=== PATIENT | female | born 1995 | race Caucasian/White ===

== ENCOUNTER 2019-05-14 20:49 | Emergency (ER) | payer OTHER ==
[~2019-05-14] VITALS: Ht 152.4 cm; Wt 68.8 kg
[2019-05-14 21:01] VITALS: Ht 152.4 cm; Wt 68.8 kg
[2019-05-14] MEDS ORDERED: ONDANSETRON (ODT) 4 MG TAB ODT STA (22:19)
[2019-05-14] MEDS ORDERED: ACETAMINOPHEN 500 MG TAB PO STA (22:19)
--- NOTE | 2019-05-15 01:00 | ERD ---
ER Documentation Chief Complaint Chief Complaint lower abd pain x 1 hour, states 7 weeks , denies vb HPI 24yo 7-weeks F presents with complaint of pelvic pain x 1 hr, vaginal bleeding x 1 day, and nausea x 2 days. Pt denies clots or heavy bleeding, states bleeding noticed when wiping. Rates pelvic pain as an 8/10 constant pain for which she has not taken any medication at this time. She denies fevers, vomiting, diarrhea, SOB, or dizziness. ROS All systems reviewed and are negative except as per history of present illness. CONSTITUTIONAL: Denies fever, Denies chills, Denies general weakness. RESPIRATORY: Denies SOB, Denies cough. CARDIOVASCULAR: Denies chest pain, Denies palpitations GI: Admits to nausea. Denies vomiting, Denies diarrhea. Admits to pelvic pain : Denies dysuria, Denies urgency, Denies hematuria PSYCHIATRIC: Denies change mental status, Denies confusion Allergies Allergies: Coded Allergies: ampicillin (Verified Allergy, Unknown, 05/14/19) PMhx/Soc History of Surgery: Yes ( X2, GALLBLADDER REMOVAL ) Hx Alcohol Use: No Hx Substance Use: No Hx Tobacco Use: No Smoking Status: Never smoker FmHx Family History: No diabetes, No coronary disease, No other Physical Exam Vitals Vital Signs Date Temp Pulse Resp B/P (MAP) Pulse Ox O2 O2 Flow FiO2 Time Delivery Rate 05/15/19 98.1 58 18 109/65 98 Room Air 01:16 (80) 05/14/19 98.4 84 20 122/72 100 21:01 (89) Physical Exam GEN: Alert and coherent. Well appearing, non-toxic. No acute distress. HEAD: Normocephalic, atraumatic. NECK: Supple. Full range of motion. Trachea midline. No lymphadenopathy. RESP: No tachypnea. Clear to auscultation bilaterally. No wheezing, rales or rhonchi. No accessory muscle use. CV: Regular rate and rhythm. No murmurs, rubs, or gallops. ABD: Soft, non-distended. Negative Encinsa sign. Positive RLQ tenderness. Positive suprapubic tenderness. No rebound tenderness or rigidity. Negative mcburneys point tenderness. No masses. Positive bowel sounds in all four quadrants. BACK: Full ROM. No CVA tenderness. EXTR: No deformity. No clubbing, cyanosis or edema. Equal pulses x 4. SKIN: Warm and dry. No obvious rashes, erythema, or petechiae. NEURO: Alert and oriented x3. Appropriate speech, mood and affect. Face is symmetric. Speech is normal. CN II-XII intact. Moves all extremities equally. Ambulates with a strong, steady gait. Result Diagram: 05/14/19223005/14/192230 Results 24 hrs Laboratory Tests Test 05/14/19 22:19 05/14/19 22:31 Urine Color LARISSA Urine Clarity CLOUDY Urine pH 6.0 Urine Specific [place] 1.027 Urine Ketones 2+ mg/dL Urine Nitrite NEGATIVE mg/dL Urine Bilirubin NEGATIVE mg/dL Urine Urobilinogen 2+ mg/dL Urine Leukocyte Esterase NEGATIVE Silvano/ul Urine Microscopic RBC 7 /HPF Urine Microscopic WBC 2 /HPF Urine Squamous Epithelial Cells FEW /HPF Urine Bacteria FEW /HPF Urine Mucus FEW /HPF Urine Hemoglobin 1+ mg/dL Urine Glucose NEGATIVE mg/dL Urine Total Protein 1+ mg/dl Urine Test POSITIVE White Blood Count 14.1 10^3/ul Red Blood Count 4.57 10^6/ul Hemoglobin 14.0 g/dl Hematocrit 40.1 % Mean Corpuscular Volume 87.7 fl Mean Corpuscular Hemoglobin 30.6 pg Mean Corpuscular Hemoglobin Concent 34.9 g/dl Red Cell Distribution Width 12.7 % Platelet Count 357 10^3/UL Mean Platelet Volume 9.9 fl Immature Granulocytes % 0.400 % Neutrophils % 67.5 % Lymphocytes % 26.8 % Monocytes % 4.6 % Eosinophils % 0.3 % Basophils % 0.4 % Nucleated Red Blood Cells % 0.0 /100WBC Immature Granulocytes # 0.050 10^3/ul Neutrophils # 9.5 10^3/ul Lymphocytes # 3.8 10^3/ul Monocytes # 0.7 10^3/ul Eosinophils # 0.0 10^3/ul Basophils # 0.1 10^3/ul Nucleated Red Blood Cells # 0.0 10^3/ul Prothrombin Time 13.9 Sec Prothrombin Time Ratio 1.1 INR International Normalized Ratio 1.06 Activated Partial Thromboplast Time 33.1 Sec Sodium Level 139 mmol/L Potassium Level 3.9 mmol/L Chloride Level 106 mmol/L Carbon Dioxide Level 20 mmol/L Anion Gap 13 Blood Urea Nitrogen 5 mg/dl Creatinine 0.56 mg/dl Est Glomerular Filtrat Rate mL/min > 60 mL/min Glucose Level 100 mg/dl Calcium Level 9.3 mg/dl Total Bilirubin 0.6 mg/dl Direct Bilirubin 0.00 mg/dl Indirect Bilirubin 0.6 mg/dl Aspartate Amino Transf (AST/SGOT) 45 IU/L Alanine Aminotransferase (ALT/SGPT) 77 IU/L Alkaline Phosphatase 122 IU/L Total Protein 8.3 g/dl Albumin 4.6 g/dl Globulin 3.70 g/dl Albumin/Globulin Ratio 1.24 Beta HCG, Quantitative 42344.0 mIU/ml Current Medications Medications Dose Sig/Silvestre Start Time Status Last (Trade) Ordered Route PRN Stop Time Admin Dose Reason Admin Ondansetron 4 mg ONCE STAT 05/14/19 DC 05/14/19 HCl (Zofran ODT 22:19 22:28 Odt) 05/14/19 22:24 1,000 mg ONCE STAT 05/14/19 DC 05/14/19 Acetaminophen PO 22:19 22:28 (Tylenol 05/14/19 22:24 Tab) Procedures/MDM PROCEDURE: US Abdomen (right lower quadrant). FINDINGS: The appendix is not seen. IMPRESSION: 1. Appendix is not seen. 2. If there is persistent clinical concern regarding appendicitis, further evaluation with CT scan should be considered. PROCEDURE: US OB. FINDINGS: Uterus: No evidence of masses and normal in size Endometrial cavity: Intrauterine gestational sac, yolk sac and pole are p resent with the following information: [place]-rump length: 1.37 cm heart rate: 176 bpm Gestational sac: 2.30 cm Ultrasound estimated gestational age: 7 weeks 3 days Small hypoechoic subchorionic hemorrhage measures 0.7 x 0.4 cm. Right ovary/adnexa: Ovarian size is normal estimated at 2.6 x 1.9 x 140 cm. No ovarian or adnexal mass lesion is seen. Left ovary/adnexa: Ovarian size normal estimated at 3 x 1.9 x 2 cm. A corpus luteum cyst of the left ovary measures 1.4 cm. No adnexal mass lesion is seen. Cul-de-sac: There is no free fluid. IMPRESSION: 1. Single live intrauterine with an estimated gestational age of 7 weeks 3 days, the estimated date of delivery 12/28/2019. 2. Small subchorionic hemorrhage estimated at 0.7 x 0.4 cm. MDM: This is a 24year old 7weeks female presenting for complaint of vaginal bleeding, pelvic pain, and nausea. Patient is well-appearing, in no distress, non-toxic. In ED patient is hemodynamically stable. Pt with TTP RLQ and denies appendectomy. US Appendix did not visualize and appendix, US OB showed live IUP with gestational age of approx 7 weeks, and small subchorionic h emorrhage. Laboratory studies were reviewed, stable, Rh O pos. Pt was given Tylenol and Zofran PO for pain and nausea while in ED, with improvement in symptoms upon reassessment. At this time I can't fully exclude appendicitis d/t RLQ Pain, nausea, and inconclusive US however, my suspicions remain low. Regardless, I have counseled this patient regarding strict ED return precautions and to return in 8hrs if symptoms persist or worsen. Counseled patient she will need to have close follow-up with OB. Threatened miscarriage precautions were given to the pt and pelvic rest discussed. Patient remains in no distress, well- appearing, asymptomatic and will be discharged. Pt expressed verbal understa nding and agreement to treatment plan. All questions addressed and answered. Departure Diagnosis: Primary Impression: Subchorionic hemorrhage Fetus number: single or unspecified fetus Trimester: first trimester Qualified Codes: O41.8X10 - Other specified disorders of amniotic fluid and membranes, first trimester, not applicable or unspecified; O46.8X1 - Other antepartum hemorrhage, first trimester Additional Impressions: Vaginal bleeding Abdominal pain Abdominal location: right lower quadrant Qualified Codes: R10.31 - Right lower quadrant pain Condition: Stable SANDOVAL AMES PA-C May 15, 2019 01:00
[2019-05-15 01:16] VITALS: BP 109/65; PULSE 58; RESP 18
== END 2019-05-15 01:17 | disposition home or self-care (01) ==
LOC: FTE 20:49
DX: O41.8X10 Other specified disorders of amniotic fluid and membranes, first trimester, not applicable or unspecified (principal); O46.8X1 Other antepartum hemorrhage, first trimester; R10.31 Right lower quadrant pain; R10.2 Pelvic and perineal pain; Z3A.01 Less than 8 weeks gestation of pregnancy
CPT/HCPCS: 36415; 76705; 76801; 80053; 81001; 84702; 84703; 85025; 85610; 85730; 86900; 86901; Z7502; Z7610

== ENCOUNTER 2019-05-17 20:15 | Emergency (ER) | payer OTHER ==
[~2019-05-17] VITALS: Ht 157.5 cm; Wt 63.6 kg
[2019-05-17 20:22] VITALS: Ht 157.5 cm; Wt 63.6 kg
[2019-05-17] MEDS ORDERED: ACETAMINOPHEN 325 MG TAB PO ONE (22:30)
[2019-05-17] MEDS ORDERED: LACTATED RINGER'S 1,000 ML IV ONE (22:30)
[2019-05-17] MEDS ORDERED: METOCLOPRAMIDE 10 MG INJ IV ONE (22:30)
[2019-05-17] MEDS ORDERED: PREN1TAB71 PO (22:38)
--- NOTE | 2019-05-18 00:24 | ERD ---
ER Documentation Chief Complaint Chief Complaint WEAKNESS, VOMITING, AP, SOB X 3 DAYS HPI 24-year-old female , LMP 03/13/2019 seen in the ED 2 days ago and ultrasound revealed a 7-week intrauterine with a small subchorionic bleed presents to the ED complaining of mild, sharp and crampy, nonradiating suprapubic abdominal pain with nausea and several episodes of nonbloody nonbilious emesis. In contrast to the triage note denies chest pain, palpitations or shortness of breath. No dysuria, polyuria, hematuria, flank pain, vaginal bleeding or discharge. No fevers or chills. ROS All systems reviewed and are negative except as per history of present illness. Medications Home Meds Active Scripts Metoclopramide* (Reglan*) 10 Mg Tablet, 10 MG PO Q6 PRN for NAUSEA AND/OR VOMITING, #15 TAB Prov:RACHAEL THOMPSON MD 05/18/19 Reported Medications Vit No.130/Iron/FA ( Tablet) 1 Each Tablet, 1 EACH PO DAILY, TAB 05/17/19 Allergies Allergies: Coded Allergies: ampicillin (Unverified Allergy, Unknown, 05/17/19) PMhx/Soc Medical and Surgical Hx: pt denies Medical Hx History of Surgery: Yes ( X2, GALLBLADDER REMOVAL ) Hx Neurological Disorder: No Hx Respiratory Disorders: No Hx Cardiac Disorders: No Hx Psychiatric Problems: Yes (anxiety) Hx Miscellaneous Medical Probl: No Hx Alcohol Use: No Hx Substance Use: No Hx Tobacco Use: No Smoking Status: Never smoker FmHx No family history relevant to presenting complaint Physical Exam Vitals Vital Signs Date Temp Pulse Resp B/P (MAP) Pulse Ox O2 O2 Flow FiO2 Time Delivery Rate 05/18/19 69 18 110/61 100 Room Air 00:47 (77) 05/18/19 65 15 104/74 100 Room Air 00:11 (84) 05/17/19 78 24 114/94 99 Room Air 21:29 (101) 05/17/19 97.6 62 32 146/84 100 20:22 (104) Physical Exam Const: Anxious, crying, moderate distress. Head: Atraumatic Eyes: Normal Conjunctiva ENT: Normal External Ears, Nose and Mouth. Neck: Full range of motion. No meningismus. Resp: Clear to auscultation bilaterally Cardio: Regular rate and rhythm, no murmurs Abd: Soft, mild suprapubic tenderness but no right or left lower quadrant tenderness. No rebound or guarding. Normal bowel sounds. : Pelvic exam deferred as per patient. Skin: No petechiae or rashes Back: No midline or flank tenderness Ext: No cyanosis, or edema Neur: Awake and alert Psych: Anxious but not depressed. Results 24 hrs Current Medications Medications Dose Sig/Silvestre Start Time Status Last (Trade) Ordered Route PRN Stop Time Admin Dose Reason Admin 10 mg ONCE ONCE 05/17/19 DC 05/17/19 Metoclopramid IV 22:30 22:26 e HCl 05/17/19 22:31 (Reglan) Lactated 1,000 ml @ Q1H ONCE 05/17/19 DC 05/17/19 Ringer's 1,000 mls/hr IV 22:30 22:27 05/17/19 23:29 650 mg ONCE ONCE 05/17/19 DC 05/17/19 Acetaminophen PO 22:30 22:55 (Tylenol 05/17/19 22:31 Tab) Procedures/MDM DOCUMENTS REVIEWED: ED nurse, prior ED visit, labs and imaging studies from 05/14 REEXAMINATION/REEVALUATION: Time: 2350. Doing well. Asymptomatic. Abdomen soft nontender. Tolerating PO's and request discharge. MEDICAL DECISION MAKIN-year-old female , LMP 03/13/2019 seen in the ED 3 days ago and ultrasound revealed a 7-week intrauterine with a small subchorionic bleed presents to the ED complaining of mild, sharp and crampy, nonradiating suprapubic abdominal pain with nausea and several episodes of nonbloody nonbilious emesis. Labs and imaging studies from prior ED visit on 05/14 reviewed. Blood type is O+. Abdominal exam is completely benign without significant tenderness, rebound, guarding or signs of an occult process including but not limited to appendicitis. No vaginal bleeding. Ultrasound revealed a documented intrauterine and there is no findings of heterotopic . No symptoms of urinary tract infection or pyelonephritis and prior urinalysis is negative. Symptoms completely resolved with intravenous fluids, metoclopramide and acetaminophen. Stable for discharge with precautionary instructions and outpatient follow-up as counseled. Counseled patient and family regarding diagnostic workup, diagnosis and need for followup. Understands to return to ED if symptoms recur, worsen or any other concerns. Departure Diagnosis: Primary Impression: Abdominal pain during Trimester: first trimester Qualified Codes: O26.891 - Other specified related conditions, first trimester; R10.9 - Unspecified abdominal pain Additional Impressions: Nausea and vomiting Vomiting type: unspecified Vomiting Intractability: non-intractable Q ualified Codes: R11.2 - Nausea with vomiting, unspecified with 7 completed weeks gestation Subchorionic hemorrhage in first trimester Fetus number: single or unspecified fetus Qualified Codes: O41.8X10 - Other specified disorders of amniotic fluid and membranes, first trimester, not applicable or unspecified; O46.8X1 - Other antepartum hemorrhage, first trimester Condition: Stable (Improved) RACHAEL THOMPSON MD May 18, 2019 00:24
[2019-05-18] MEDS ORDERED: METO10TA92 PO (00:40)
[2019-05-18 00:47] VITALS: BP 110/61; PULSE 69; RESP 18
== END 2019-05-18 01:01 | disposition home or self-care (01) ==
LOC: E/R 20:15
DX: O26.891 Other specified pregnancy related conditions, first trimester (principal); R40.2142 Coma scale, eyes open, spontaneous, at arrival to emergency department; R40.2362 Coma scale, best motor response, obeys commands, at arrival to emergency department; R40.2252 Coma scale, best verbal response, oriented, at arrival to emergency department; R10.9 Unspecified abdominal pain; O41.8X10 Other specified disorders of amniotic fluid and membranes, first trimester, not applicable or unspecified; O46.8X1 Other antepartum hemorrhage, first trimester; Z3A.01 Less than 8 weeks gestation of pregnancy
CPT/HCPCS: 96374; J2765; J7120; Z7502; Z7610

== ENCOUNTER 2019-05-20 10:36 | Emergency (ER) | payer OTHER ==
[~2019-05-20] VITALS: Ht 157.5 cm; Wt 78.0 kg
[~2019-05-20 10:36] MED LIST: METO10TA92 PO; PREN1TAB71 PO
[2019-05-20 10:48] VITALS: Ht 157.5 cm; Wt 78.0 kg
[2019-05-20] MEDS ORDERED: SOD CHLORIDE 0.9% 1,000 ML IV STA (11:35)
[2019-05-20] MEDS ORDERED: ACETAMINOPHEN 325 MG TAB PO ONE (12:00)
[2019-05-20] MEDS ORDERED: METOCLOPRAMIDE 10 MG INJ IV ONE (12:00)
[2019-05-20] MEDS ORDERED: FAMOTIDINE 20 MG INJ IV ONE (12:00)
--- NOTE | 2019-05-20 13:25 | ERD ---
ER Documentation Chief Complaint Chief Complaint 9 WEEKS WITH VOMITING LAST NIGHT HPI 24-year-old female in her ninth week of presents with complaint of epigastric pain with vomiting since last night. Vomitus described as nonbilious and nonbloody. Patient denies any treatments. States that she was just here a few days ago with similar problem. states that she gets panic attacks and has anxiety. Patient denies any dysuria, hematuria, flank pain, fevers, chills, chest pain, shortness of breath. ROS All systems reviewed and are negative except as per history of present illness. Medications Home Meds Active Scripts Metoclopramide* (Reglan*) 10 Mg Tablet, 10 MG PO Q6 PRN for NAUSEA AND/OR VOMITING, #15 TAB Prov:RACHAEL THOMPSON MD 05/18/19 Reported Medications Vit No.130/Iron/FA ( Tablet) 1 Each Tablet, 1 EACH PO DAILY, TAB 05/17/19 Allergies Allergies: Coded Allergies: ampicillin (Unverified Allergy, Unknown, 05/17/19) PMhx/Soc History of Surgery: Yes ( X2, GALLBLADDER REMOVAL ) Hx Neurological Disorder: No Hx Respiratory Disorders: No Hx Cardiac Disorders: No Hx Psychiatric Problems: Yes (anxiety) Hx Miscellaneous Medical Probl: No Hx Alcohol Use: No Hx Substance Use: No Hx Tobacco Use: No Smoking Status: Never smoker FmHx Family History: No diabetes, No coronary disease, No other Physical Exam Vitals Vital Signs Date Temp Pulse Resp B/P (MAP) Pulse Ox O2 O2 Flow FiO2 Time Delivery Rate 05/20/19 98.1 95 18 129/76 99 10:48 (93) Physical Exam Const: No acute distress Head: Atraumatic Eyes: Normal Conjunctiva ENT: Normal External Ears, Nose and Mouth. Neck: Full range of motion. No meningismus. Resp: Clear to auscultation bilaterally Cardio: Regular rate and rhythm, no murmurs Abd: Moderate epigastric pain to palpation. Negative McBurney's. Negative Encinas's. Skin: No petechiae or rashes Back: No midline or flank tenderness Ext: No cyanosis, or edema Neur: Awake and alert Psych: Normal Mood and Affect Result Diagram: 05/20/19 1150 05/20/19 1149 Results 24 hrs Laboratory Tests Test 05/20/19 11:49 05/20/19 11:50 05/20/19 12:50 Sodium Level 142 mmol/L Potassium Level 3.7 mmol/L Chloride Level 108 mmol/L Carbon Dioxide Level 21 mmol/L Anion Gap 13 Blood Urea Nitrogen 7 mg/dl Creatinine 0.50 mg/dl Est Glomerular Filtrat > 60 mL/min Rate mL/min Glucose Level 99 mg/dl Calcium Level 10.0 mg/dl Total Bilirubin 0.6 mg/dl Direct Bilirubin 0.00 mg/dl Indirect Bilirubin 0.6 mg/dl Aspartate Amino 33 IU/L Transf (AST/SGOT) Alanine 62 IU/L Aminotransferase (ALT/SGPT) Alkaline Phosphatase 111 IU/L Total Protein 8.3 g/dl Albumin 4.7 g/dl Globulin 3.60 g/dl Albumin/Globulin Ratio 1.30 Beta HCG, Quantitative 305299.0 mIU/ml White Blood Count 14.2 10^3/ul Red Blood Count 4.83 10^6/ul Hemoglobin 14.7 g/dl Hematocrit 41.1 % Mean Corpuscular Volume 85.1 fl Mean Corpuscular Hemoglobin 30.4 pg Mean Corpuscular 35.8 g/dl Hemoglobin Concent Red Cell Distribution Width 12.6 % Platelet Count 387 10^3/UL Mean Platelet Volume 10.2 fl Immature Granulocytes % 0.400 % Neutrophils % 76.0 % Lymphocytes % 18.8 % Monocytes % 4.4 % Eosinophils % 0.1 % Basophils % 0.3 % Nucleated Red Blood Cells % 0.0 /100WBC Immature Granulocytes # 0.050 10^3/ul Neutrophils # 10.8 10^3/ul Lymphocytes # 2.7 10^3/ul Monocytes # 0.6 10^3/ul Eosinophils # 0.0 10^3/ul Basophils # 0.0 10^3/ul Nucleated Red Blood Cells # 0.0 10^3/ul Urine Color LARISSA Urine Clarity TURBID Urine pH 7.0 Urine Specific [place] 1.023 Urine Ketones 2+ mg/dL Urine Nitrite NEGATIVE mg/dL Urine Bilirubin NEGATIVE mg/dL Urine Urobilinogen 1+ mg/dL Urine Leukocyte Esterase NEGATIVE Silvano/ul Urine Microscopic RBC 6 /HPF Urine Microscopic WBC 2 /HPF Urine Squamous FEW /HPF Epithelial Cells Urine Amorphous Crystals MODERATE /HPF Urine Mucus FEW /HPF Urine Hemoglobin 1+ mg/dL Urine Glucose NEGATIVE mg/dL Urine Total Protein NEGATIVE mg/dl Current Medications Medications Dose Sig/Silvestre Start Time Status Last (Trade) Ordered Route PRN Stop Time Admin Dose Reason Admin Sodium 1,000 ml @ Q1H STAT 05/20/19 DC 05/20/19 Chloride 1,000 mls/hr IV 11:35 11:53 05/20/19 12:34 10 mg ONCE ONCE 05/20/19 DC 05/20/19 Metoclopramid IV 12:00 11:53 e HCl 05/20/19 12:01 (Reglan) Famotidine 20 mg ONCE ONCE 05/20/19 DC 05/20/19 (Pepcid Iv) IV 12:00 11:52 05/20/19 12:01 650 mg ONCE ONCE 05/20/19 DC 05/20/19 Acetaminophen PO 12:00 11:53 (Tylenol 05/20/19 12:01 Tab) Procedures/MDM DIAGNOSTIC IMAGING REPORT Patient: QUINCY LI : 1995 Age: 24 Sex: F MR #: [id number] DOS: 05/20/19 1321 Ordering MD: BRIEN ALVAREZ Location: [facility] Room/Bed: PROCEDURE: US Abdomen and Retroperitoneum. CLINICAL INDICATION: Abdominal pain. TECHNIQUE: Multiple real-time longitudinal and transverse images were acquired of the patient's abdomen and retroperitoneum utilizing a curved array transducer. COMPARISON: No prior studies are available for comparison. FINDINGS: The liver is normal in size and normal in echogenicity, and measures 13.3 cm. The liver has a normal smooth surface. There is no focal hepatic lesion. Color Doppler and pulsed Doppler sonography demonstrate normal antegrade flow in the portal vein. The gallbladder is surgically removed. The bile ducts are normal with the common bile duct measuring 3.8 mm in diameter. The spleen is normal in size, it measures 9.5 cm.. There is no focal splenic lesion. The pancreas is partially seen and is unremarkable. There is no free fluid. The right kidney measures 9.8 cm . The left kidney measures 10.4 cm. There is no renal mass. There is no hydronephrosis or calculus. The abdominal aorta is not dilated. The inferior vena cava is unremarkable. IMPRESSION: Status post cholecystectomy. No biliary dilatation. No free fluid. Physician Lisset Date Time Electronically viewed and signed by Rafael Chaudhry Physician on 05/20/2019 14:17 RD/ CC: BRIEN ALVAREZ [id number] DIAGNOSTIC IMAGING REPORT Patient: QUINCY LI : 1995 Age: 24 Sex: F MR #: [id number] DOS: 05/20/19 1135 Ordering MD: BRIEN ALVAREZ Location: [facility] Room/Bed: PROCEDURE: US OB. CLINICAL INDICATION: Vomiting TECHNIQUE: Transabdominal views of the pelvis are available for review. COMPARISON: No prior studies are available for comparison. FINDINGS: There is a single intrauterine gestation with the crown-rump length measuring 1.9 cm, corresponding to a gestational age of 8 weeks and 3 days. The heart rate is noted at 168 bpm. The ovaries are normal in size and echogenicity. Normal Doppler flow is identified in both ovaries. The right ovary measures 2.8 x 1.6 x 2.1 cm. The left ovary measures 3.6 x 2.0 x 2.0 cm. There is a 2 cm hemorrhagic corpus luteum cyst in the left ovary. There is no free fluid. RPTAT: AA IMPRESSION: Single live intrauterine with an estimated gestational age of 8 weeks and 3 days, based on ultrasound measurements. ANT based on ultrasound measurements is 12/27/19. Small hemorrhagic cyst in the left ovary. .Romeo Esparza MD, Date Time Electronically viewed and signed by .Romeo Esparza MD, on 05/20/2019 12:33 .S/ CC: BRIEN ALVAREZ [phone] MEDICAL DECISION MAKIN-year-old female , LMP 03/13/2019 seen in the ED 2 days ago and ultrasound revealed a 7-week intrauterine with a small subchorionic bleed presents to the ED complaining of epigastric pain with episodes of vomiting last night. Vomitus is nonbloody nonbilious. Labs and imaging studies from prior ED visit on 05/14 reviewed. Blood type is O+. Abdominal exam is completely benign without significant tenderness, rebound, guarding or signs of an occult process including but not limited to appendicitis. No vaginal bleeding. Ultrasound revealed a documented intrauterine and there is no findings of heterotopic . No symptoms of urinary tract infection or pyelonephritis and prior urinalysis is negative. Symptoms completely resolved with intravenous fluids, metoclopramide and acetaminophen. Stable for discharge with precautionary instructions and outpatient follow-up as counseled. At this time, patient is stable for discharge and outpatient management. I have instructed the patient to follow-up with his/her primary care physician in 1-2 days as well as to return to ER in 48 hours for repeat hCG levels to rule out heterotopic . I have discussed with the patient the possibility of needing to see a specialist for further workup and imaging studies if symptoms persist. I have instructed the patient to promptly return to the ER for any new or worsening symptoms including but not limited to increased pain, fever, nausea, vomiting, weakness or LOC. The patient and/or family expressed understanding of and agreement with this plan. All questions were answered. Home care instructions were provided. Communication with patient both during the exam and instructions for discharge were performed with using a machine container washer . Patient gave verbal confirmation to the practitioner, through the machine container washer, that they understood everythign that was being said to them. DISCLAIMER: Inadvertent spelling and grammatical errors are likely due to EHR/dictation software use and do not reflect on the overall quality of patient care. Also, please note that the electronic time recorded on this note does not necessarily reflect the actual time of the patient encounter. Departure Diagnosis: Primary Impression: Vomiting Additional Impression: Abdominal pain Condition: BRIEN Arcos May 20, 2019 13:25
[2019-05-20 15:36] VITALS: BP 115/74; PULSE 58; RESP 18
== END 2019-05-20 15:38 | disposition home or self-care (01) ==
LOC: FTE 10:36
DX: O21.9 Vomiting of pregnancy, unspecified (principal); R10.9 Unspecified abdominal pain; Z3A.08 8 weeks gestation of pregnancy
CPT/HCPCS: 36415; 76700; 76801; 80053; 81001; 84702; 85025; 86900; 86901; 87086; 96361; 96374; 96375; J2765; J7030; Z7502; Z7610

== ENCOUNTER 2019-06-17 17:15 | Emergency (ER) | payer OTHER ==
[~2019-06-17] VITALS: Ht 157.5 cm; Wt 64.5 kg
[2019-06-17 17:17] VITALS: Ht 157.5 cm; Wt 64.5 kg
[2019-06-17] MEDS ORDERED: SOD CHLORIDE 0.9% 1,000 ML IV STA (17:52)
[2019-06-17] MEDS ORDERED: HYDROCODONE/APAP (5/325) TAB PO STA (17:52)
[2019-06-17] MEDS ORDERED: METOCLOPRAMIDE 10 MG INJ IV ONE (18:00)
--- NOTE | 2019-06-17 18:12 | ERD ---
ER Documentation Chief Complaint Chief Complaint abd pain with vomiting x 1 week , 11 weeks preg , denies vag bleed HPI 24-year-old G3, P2 female with LMP of March 13, 2019 with a history of abdominal pain and vomiting during presents with complaint of abdominal pain and vomiting for the past week. States that the abdominal pain is located in the epigastric area. Vomitus described as nonbilious and nonbloody. States that she was prescribed Reglan 10 mg but has not been taking it. States that she told her OB about her symptoms and her OB stated that if they continued she would need to either come to the ER or follow-up with her clinic. denies any fevers, diarrhea, dysuria, hematuria, flank pain, vaginal bleeding. ROS All systems reviewed and are negative except as per history of present illness. Medications Home Meds Active Scripts Acetaminophen* (Tylophen*) 500 Mg Capsule, 2 CAP PO Q8H PRN for PAIN AND OR ELEVATED TEMP, #20 CAP Prov:BRIEN ALVAREZ 06/17/19 Metoclopramide* (Reglan*) 10 Mg Tablet, 10 MG PO Q6 PRN for NAUSEA AND/OR VOMITING, #10 TAB Prov:BRIEN ALVAREZ 06/17/19 Metoclopramide* (Reglan*) 10 Mg Tablet, 10 MG PO Q6 PRN for NAUSEA AND/OR VOMITING, #15 TAB Prov:RACHAEL THOMPSON MD 05/18/19 Reported Medications Vit No.130/Iron/FA ( Tablet) 1 Each Tablet, 1 EACH PO DAILY, TAB 05/17/19 Allergies Allergies: Coded Allergies: ampicillin (Unverified Allergy, Unknown, 06/17/19) PMhx/Soc History of Surgery: Yes ( X2, GALLBLADDER REMOVAL ) Hx Neurological Disorder: No Hx Respiratory Disorders: No Hx Cardiac Disorders: No Hx Psychiatric Problems: Yes (anxiety) Hx Miscellaneous Medical Probl: No Hx Alcohol Use: No Hx Substance Use: No Hx Tobacco Use: No FmHx Family History: No diabetes, No coronary disease, No other Physical Exam Vitals Vital Signs Date Temp Pulse Resp B/P (MAP) Pulse Ox O2 O2 Flow FiO2 Time Delivery Rate 06/17/19 99.4 114 18 137/76 98 17:17 (96) Physical Exam Const: No acute distress Head: Atraumatic Eyes: Normal Conjunctiva ENT: Normal External Ears, Nose and Mouth. Neck: Full range of motion. No meningismus. Resp: Clear to auscultation bilaterally Cardio: Regular rate and rhythm, no murmurs Abd: Tenderness to palpation along upper right upper left quadrant. Negative McBurney's. Patient able to jump up and down on exam. Skin: No petechiae or rashes Back: No midline or flank tenderness Ext: No cyanosis, or edema Neur: Awake and alert Psych: Normal Mood and Affect Result Diagram: 06/17/19 5841 Results 24 hrs Laboratory Tests Test 06/17/19 18:37 06/17/19 18:47 White Blood Count 10.4 10^3/ul Red Blood Count 4.91 10^6/ul Hemoglobin 15.0 g/dl Hematocrit 42.7 % Mean Corpuscular Volume 87.0 fl Mean Corpuscular Hemoglobin 30.5 pg Mean Corpuscular Hemoglobin Concent 35.1 g/dl Red Cell Distribution Width 12.9 % Platelet Count 353 10^3/UL Mean Platelet Volume 9.9 fl Immature Granulocytes % 0.500 % Neutrophils % 71.7 % Lymphocytes % 20.6 % Monocytes % 6.6 % Eosinophils % 0.3 % Basophils % 0.3 % Nucleated Red Blood Cells % 0.0 /100WBC Immature Granulocytes # 0.050 10^3/ul Neutrophils # 7.5 10^3/ul Lymphocytes # 2.2 10^3/ul Monocytes # 0.7 10^3/ul Eosinophils # 0.0 10^3/ul Basophils # 0.0 10^3/ul Nucleated Red Blood Cells # 0.0 10^3/ul Urine Color LARISSA Urine Clarity CLOUDY Urine pH 5.0 Urine Specific [place] 1.023 Urine Ketones 2+ mg/dL Urine Nitrite NEGATIVE mg/dL Urine Bilirubin NEGATIVE mg/dL Urine Urobilinogen 1+ mg/dL Urine Leukocyte Esterase NEGATIVE Silvano/ul Urine Microscopic RBC 4 /HPF Urine Microscopic WBC 6 /HPF Urine Squamous Epithelial Cells MODERATE /HPF Urine Bacteria FEW /HPF Urine Mucus MANY /HPF Urine Hemoglobin 2+ mg/dL Urine Glucose NEGATIVE mg/dL Urine Total Protein 1+ mg/dl Beta HCG, Quantitative 40323.0 mIU/ml POC Beta HCG, Qualitative POSITIVE Current Medications Medications Dose Sig/Silvestre Start Time Status Last (Trade) Ordered Route PRN Stop Time Admin Dose Reason Admin Sodium 1,000 ml @ Q1H STAT 06/17/19 DC 06/17/19 Chloride 1,000 mls/hr IV 17:52 18:42 06/17/19 18:51 1 tab ONCE STAT 06/17/19 DC 06/17/19 Acetaminophen PO 17:52 18:41 / 06/17/19 17:56 Hydrocodone Bitart ([place] (5/325)) 5 mg ONCE ONCE 06/17/19 DC 06/17/19 Metoclopramid IV 18:00 18:41 e HCl 06/17/19 18:01 (Reglan) Procedures/MDM ER Course: CBC, UA, beta quant HCG, type and RH, vaginal US/abdominal US ordered. MDM: CBC, UA, beta quant HCG, type and RH, vaginal US/abdominal US ordered. All results within limits. Ultrasound showed live gestational fetus . At this point I have low suspicion for ectopic based on results of US, hemodynamic stability, physical exam and patient history. I have low suspicion for septic , pyelonephritis, placenta abrupta, appendicitis, cholecystitis, bowel obstruction, ovarian torsion, symptomatic anema, PID, surgical abdomen, hemorrhage, or other life threatening conditions based on patient history, physical exam, and lab/imaging results. At time of discharge patient was hemodynamically stable. After receiving IV fluids and metoclopramide patient stated she felt completely fine and was ready to go home. I advised patient that she needs to take medical provide for nausea and vomiting as needed. At this time, patient is stable for discharge and outpatient management. I have instructed the patient to follow-up with his/her primary care physician in 1-2 days. I have discussed with the patient the possibility of needing to see a spe cialist for further workup and imaging studies if symptoms persist. I have instructed the patient to promptly return to the ER for any new or worsening symptoms including but not limited to increased pain, fever, nausea, vomiting, weakness or LOC. The patient and/or family expressed understanding of and agreement with this plan. All questions were answered. Home care instructions were provided. Communication with patient both during the exam and instructions for discharge were performed with using a tipple engineer . Patient gave verbal confirmation to the practitioner, through the tipple engineer, that they understood everything that was being said to them. DISCLAIMER: Inadvertent spelling and grammatical errors are likely due to EHR/dictation software use and do not reflect on the overall quality of patient care. Also, please note that the electronic time recorded on this note does not necessarily reflect the actual time of the patient encounter. BRIEN ALVAREZ Jun 17, 2019 18:12
[2019-06-17] MEDS ORDERED: METO10TA92 PO (19:54)
[2019-06-17] MEDS ORDERED: ACET500C5 PO (19:54)
[2019-06-17 20:08] VITALS: BP 123/82; PULSE 68; RESP 18
== END 2019-06-17 20:09 | disposition home or self-care (01) ==
LOC: FTE 17:15
DX: O26.891 Other specified pregnancy related conditions, first trimester (principal); R10.13 Epigastric pain; Z3A.12 12 weeks gestation of pregnancy
CPT/HCPCS: 36415; 76700; 76801; 81001; 81025; 84702; 85025; 86900; 86901; 96361; 96374; J2765; J7030; Z7502; Z7610

== ENCOUNTER 2019-07-12 19:31 | Emergency (ER) | payer OTHER ==
[~2019-07-12] VITALS: Ht 157.5 cm; Wt 65.3 kg
[~2019-07-12 19:31] MED LIST changes: +ACET325T33 PO; +ACET500C5 PO; +OMEP20CA16 PO; +RANI150T35 PO
[2019-07-12 19:33] VITALS: Ht 157.5 cm; Wt 65.3 kg
[2019-07-12] MEDS ORDERED: ACETAMINOPHEN 325 MG TAB PO STA (20:13)
[2019-07-12] MEDS ORDERED: morphine 4 MG/ML VIAL IV STA (20:57)
[2019-07-12] MEDS ORDERED: ONDANSETRON 4 MG INJ IV STA (20:57)
[2019-07-12] MEDS ORDERED: SOD CHLORIDE 0.9% 1,000 ML IV ONE (21:00)
[2019-07-12] MEDS ORDERED: FAMOTIDINE 20 MG INJ IV ONE (21:00)
[2019-07-13 01:16] VITALS: BP 109/66; PULSE 67; RESP 18
== END 2019-07-13 01:18 | disposition home or self-care (01) ==
LOC: FTE 19:31
DX: O26.891 Other specified pregnancy related conditions, first trimester (principal); R10.9 Unspecified abdominal pain; Z3A.16 16 weeks gestation of pregnancy
CPT/HCPCS: 36415; 74181; 76705; 76805; 80053; 81001; 84702; 85025; 86900; 86901; 96361; 96374; 96375; J2270; J2405; J7030; Z7502; Z7610

== ENCOUNTER 2019-07-17 10:35 | Emergency (ER) | payer OTHER ==
[~2019-07-17] VITALS: Ht 167.6 cm; Wt 64.8 kg
[2019-07-17 10:48] VITALS: Ht 167.6 cm; Wt 64.8 kg
[2019-07-17] MEDS ORDERED: METOCLOPRAMIDE 10 MG INJ IV STA (11:46)
[2019-07-17] MEDS ORDERED: FAMOTIDINE 20 MG TAB PO STA (11:46)
[2019-07-17] MEDS ORDERED: SOD CHLORIDE 0.9% 500 ML IV STA (11:46)
[2019-07-17 14:46] VITALS: BP 128/72; PULSE 78; RESP 20
== END 2019-07-17 14:48 | disposition home or self-care (01) ==
LOC: FTE 10:35
DX: O99.612 Diseases of the digestive system complicating pregnancy, second trimester (principal); K21.9 Gastro-esophageal reflux disease without esophagitis; Z3A.18 18 weeks gestation of pregnancy
CPT/HCPCS: 36415; 80053; 81001; 83690; 85025; 96361; 96374; J2765; J7040; Z7502; Z7610

== ENCOUNTER 2019-08-08 18:03 | Outpatient (CLI) | payer OTHER ==
[~2019-08-08] VITALS: Ht 154.9 cm; Wt 65.0 kg
[~2019-08-08 18:03] MED LIST changes: +ACET-2343 PO; +ASPI-535 PO; +CALC600T24 PO; +FAMO-96 PO; +FAMO10TA84 PO; +HALO10TA PO; -OMEP20CA16 PO; +OMEP20CA17 PO; +ONDA4TAB14 PO; +PYRI25TA3 PO; +RANI-535 PO; -RANI150T35 PO; +SERT25TA83 PO; +THIA50TA11 PO
[2019-08-08 18:40] VITALS: BP 121/88; PULSE 80; RESP 18; Ht 154.9 cm; Wt 65.0 kg
[2019-08-08] MEDS ORDERED: LACTATED RINGER'S 1,000 ML IV SCH (19:00)
[2019-08-08] MEDS ORDERED: ONDANSETRON 4 MG INJ IV STA (19:10)
== END 2019-08-09 | disposition home or self-care (01) ==
LOC: OBT 18:03 → L-D 18:05 → OBT 08-09
PROVIDERS: ATTEND Specialist
DX: O21.0 Mild hyperemesis gravidarum (principal); Z3A.21 21 weeks gestation of pregnancy
CPT/HCPCS: 80053; 81001; 85025; 87086; J2405; J7120; G0463

== ENCOUNTER 2019-09-23 15:06 | Emergency (ER) | payer OTHER ==
[~2019-09-23] VITALS: Ht 162.6 cm; Wt 65.5 kg
[2019-09-23 15:07] VITALS: Ht 162.6 cm; Wt 65.5 kg
[2019-09-23] MEDS ORDERED: ACETAMINOPHEN 325 MG TAB PO STA (16:06)
[2019-09-23] MEDS ORDERED: SOD CHLORIDE 0.9% 1,000 ML IV STA (16:06)
[2019-09-23] MEDS ORDERED: FAMOTIDINE 20 MG INJ IV ONE (16:30)
[2019-09-23] MEDS ORDERED: METOCLOPRAMIDE 10 MG INJ IV ONE (16:30)
[2019-09-23] MEDS ORDERED: ACETAMINOPHEN 1000MG/100ML IV 100 ML IVPB ONE (17:30)
[2019-09-23 19:23] VITALS: BP 104/62; PULSE 85; RESP 16
== END 2019-09-23 19:24 | disposition home or self-care (01) ==
LOC: FTE 15:06
DX: O99.612 Diseases of the digestive system complicating pregnancy, second trimester (principal); K29.00 Acute gastritis without bleeding; Z3A.27 27 weeks gestation of pregnancy; Z79.82 Long term (current) use of aspirin
CPT/HCPCS: J0131; J2765; J7030; Z7610; 96374; 96375

== ENCOUNTER 2019-09-24 14:04 | Emergency (ER) | payer OTHER ==
[~2019-09-24] VITALS: Wt 65.5 kg
[2019-09-24] MEDS ORDERED: SOD CHLORIDE 0.9% 1,000 ML IV STA (14:56)
[2019-09-24] MEDS ORDERED: ONDANSETRON 4 MG INJ IV STA ×2 (14:56→16:50)
[2019-09-24] MEDS ORDERED: ACETAMINOPHEN 500 MG TAB PO STA (14:56)
[2019-09-24] MEDS ORDERED: RANITIDINE IV ONE (16:30)
[2019-09-24] MEDS ORDERED: SOD CHLORIDE 0.9% IV ONE (16:30)
[2019-09-24 19:08] VITALS: BP 115/74; PULSE 84; RESP 18
== END 2019-09-24 19:11 | disposition home or self-care (01) ==
LOC: FTE 14:04
DX: O21.9 Vomiting of pregnancy, unspecified (principal); O26.892 Other specified pregnancy related conditions, second trimester; R10.13 Epigastric pain; Z3A.26 26 weeks gestation of pregnancy; Z79.82 Long term (current) use of aspirin
CPT/HCPCS: 36415; 80053; 81001; 83690; 84702; 85025; 87086; 96374; 96375; 96376; J2405; J2780; J7030; Z7502; Z7610